=== PATIENT | female | born 1980 | race Caucasian/White ===

== ENCOUNTER 2016-09-03 07:59 | Emergency (ER) | payer MEDICAID ==
[~2016-09-03] VITALS: Ht 152.4 cm; Wt 66.0 kg
[2016-09-03 10:04] VITALS: BP 102/79
== END 2016-09-03 10:04 | disposition home or self-care (01) ==
LOC: ED 07:59
DX: O23.43 Unspecified infection of urinary tract in pregnancy, third trimester (principal); E11.9 Type 2 diabetes mellitus without complications; Z3A.00 Weeks of gestation of pregnancy not specified; Z79.4 Long term (current) use of insulin
CPT/HCPCS: 82962